=== PATIENT | male | born 1940 | race Two or more races ===

== ENCOUNTER 2018-12-07 13:16 | Observation (INO) | payer MEDICARE ==
--- NOTE | 2018-12-07 13:32 | EDM.PDOC ---
ED HPI GENERAL MEDICAL PROBLEM - General Chief Complaint: General Stated Complaint: FELL OFF BED Time Seen by Provider: 12/07/18 13:18 Source of Information: Reports: Patient History Limitations: Reports: No Limitations - History of Present Illness INITIAL COMMENTS - FREE TEXT/NARRATIVE: HISTORY AND PHYSICAL: History of present illness: Patient is a 78-year-old male who presents to the emergency room after a fall approximately one week ago. Patient reports that he was trying to get his pants on when his leg got caught, he recognized he was about to fall and had tried to lean towards the bed to catch his fall. He ended up landing on his left side onto the carpeted floor. Since that time he has had some left shoulder pain, left knee pain and an abrasion to his left great toe. Patient is originally from [place] and had been living with his daughter. There was some caregiver burnout and he recently came to [place] to live with his son over the past several days. He had not been evaluated for the fall initially while in [place]. He is here now for imaging.Patient denies any fever, chills, headache, change in vision, syncope or near syncope. Denies any chest pain, back pain, shortness of breath or cough. Denies any abdominal pain, nausea, vomiting, diarrhea, constipation or dysuria. Has not noted any blood in urine or stool. Patient poor eating and drinking habits (family reports this is normal for him) PMH of hypertension, atrial fibrillation, pacemaker, kidney disease Patient is Marshallese speaking, CHRISTINE was offered, declines and wants family at bedside to translate. Review of systems: As per history of present illness and below otherwise all systems reviewed and negative. Past medical history: As per history of present illness and as reviewed below otherwise noncontributory. Surgical history: As per history of present illness and as reviewed below otherwise noncontributory. Social history: See social history for further information Family history: As per history of present illness and as reviewed below otherwise noncontributory. Physical exam: General: Chronicially ill appearing but well-developed 78-year-old male. Alert and oriented. Nontoxic appearing and in no acute distress. HEENT: Nontender to palpation, normocephalic, pupils equal and reactive bilaterally, negative for conjunctival pallor or scleral icterus, mucous membranes dry, TMs normal bilaterally, throat clear, neck supple, nontender, trachea midline. No drooling or trismus noted. No meningeal signs. No hot potato voice noted. Lungs: Clear to auscultation fine crackles to the left lower base posteriorly, breath sounds equal bilaterally, chest nontender. Heart: S1S2, regular rate and rhythm without overt murmur Abdomen: Soft, nondistended, nontender. Negative for masses or hepatosplenomegaly. Negative for costovertebral tenderness. Pelvis: Stable nontender. Genitourinary: Deferred. Rectal: Deferred. Skin: Bruising noted to the left great toe. Otherwise skin is intact, warm, dry. No lesions or rashes noted. C-spine/Back: No pinpoint vertebral tenderness upon palpation. No crepitus, step -offs or obvious deformities. Denies any urinary or fecal incontinence. Denies any numbness, tingling or saddle paresthesias. Family reports he is ambulatory with assistance. Extremities: Pain with ROM of the left shoulder, left knee and left great toe. See skin for details. He is ambulatory and moves all extremities per self without deficits, strong pedal pulses bilaterally. Strong radial pulses bilaterally. Capillary refill less than 3 seconds.. Neurovascular unremarkable. Neuro: Awake, alert, oriented. Cranial nerves II through XII unremarkable. Cerebellum unremarkable. Motor and sensory unremarkable throughout. Exam nonfocal. Notes: EKG shows A.fib with normal rate, has a past medical history of atrial fibrillation with pacemaker. No previous records for comparison. Head CT shows no acute intracranial findings. Moderate small vessel ischemic changes. X-ray of the pelvis and hip shows no definite acute osseous abnormality. Left shoulder is high riding suggesting an underlying rotator cuff arthropathy. Otherwise severe joint space narrowing within the glenohumeral joint and mildacromioclavicular osteoarthritic changes. No acute osseous abnormality or fracture noted. Left knee shows moderate to large joint effusion. Mild inferior tilting of the medial tibial plateau without a definite fracture. Cardiomegaly without acute cardio pulmonary process. He does have some fine crackles to the left lower lobe due to the leukocytosis and treat this as a left lobe regular pneumonia. Dr Andrade was consulted on this patient. Will keep for IV fluids and antibiotics. Patient and family member are aware and agreeable to plan of care. Diagnostics: CT head/c-spine, Xray chest, xray left shoulder, xray left knee, xray left foot , CBC, CMP, INR, UA, Blood Culture x 2, Lactic Therapeutics: IV fluids, Rocephin Impression: Fall Renal Insufficiency Left lower lobe pneumonia Left knee effusion Cardiomegaly Abrasion, left great toe Plan: Observation admission to med/surg on Telemetry Definitive disposition and diagnosis as appropriate pending reevaluation and review of above. Duration: Week(s): left shoulder Pain Score (Numeric/FACES): 10 left knee Pain Score (Numeric/FACES): 10 lower back Pain Score (Numeric/FACES): 10 left large toe Pain Score (Numeric/FACES): 10 - Related Data Allergies Allergy/AdvReac Type Severity Reaction Status Date / Time No Known Allergies Allergy Verified 12/07/18 13:31 Home Meds: Home Meds Allopurinol [Zyloprim] 100 mg PO DAILY 12/07/18 [History] Amiodarone HCl 100 mg PO DAILY 12/07/18 [History] Apixaban [Eliquis] 5 mg PO DAILY 12/07/18 [History] Calcitriol 0.25 mcg PO DAILY 12/07/18 [History] Calcium Carbonate/Vitamin D3 [Calcium 1,000 + D3 Caplet] 1 tab PO BID 12/07/18 [ History] Carvedilol 12.5 mg PO BID 12/07/18 [History] Diltiazem HCl [Diltiazem 24Hr ER] 240 mg PO DAILY 12/07/18 [History] Doxycycline [Vibramycin] 100 mg PO DAILY 12/07/18 [History] Isosorbide Mononitrate [Isosorbide Mononitrate ER] 30 mg PO DAILY 12/07/18 [ History] Levothyroxine 75 mcg PO DAILY 12/07/18 [History] Omeprazole 40 mg PO DAILY 12/07/18 [History] Spironolactone [Aldactone] 25 mg PO DAILY 12/07/18 [History] Tamsulosin HCl 0.4 mg PO DAILY 12/07/18 [History] Torsemide 20 mg PO DAILY 12/07/18 [History] atorvaSTATin [Lipitor] 20 mg PO DAILY 12/07/18 [History] hydrALAZINE [Apresoline] 25 mg PO BID 12/07/18 [History] ED ROS GENERAL - Review of Systems Review Of Systems: ROS reveals no pertinent complaints other than HPI. ED EXAM, GENERAL - Physical Exam Exam: See Below (See dictation) Course - Vital Signs Last Recorded V/S: Last Vital Signs Temp 97.4 F 12/07/18 13:32 Pulse 70 12/07/18 15:50 Resp 11 L 12/07/18 15:50 BP 136/66 12/07/18 15:50 Pulse Ox 95 12/07/18 15:50 - Orders/Labs/Meds Orders: Active Orders 24 hr Category Date Time Status Admission Status [Patient Status] [ADT] Stat ADT 12/07/18 15:43 Active EKG Documentation Completion [RC] STAT Care 12/07/18 13:39 Active CULTURE BLOOD [BC] Stat Lab 12/07/18 15:52 Received CULTURE BLOOD [BC] Stat Lab 12/07/18 16:03 Received CULTURE URINE [RM] Stat Lab 12/07/18 14:27 Received Blood Culture x2 Reflex Set [OM.PC] Stat Oth 12/07/18 15:37 Ordered Labs: Laboratory Tests 12/07/18 12/07/18 12/07/18 Range/Units 14:03 14:03 14:03 WBC 21.14 H (4.0-11.0) K/uL RBC 5.36 (4.50-5.90) M/uL Hgb 14.0 (13.0-17.0) g/dL Hct 41.2 (38.0-50.0) % MCV 76.9 L (80.0-98.0) fL MCH 26.1 L (27.0-32.0) pg MCHC 34.0 (31.0-37.0) g/dL RDW Std Deviation 40.0 (28.0-62.0) fl RDW Coeff of Garrison 15 (11.0-15.0) % Plt Count 176 (150-400) K/uL MPV 10.00 (7.40-12.00) fL Add Manual Diff YES Neutrophils % (Manual) 86 H (48.0-80.0) % Band Neutrophils % 5 % Lymphocytes % (Manual) 7 L (16.0-40.0) % Monocytes % (Manual) 2 (0.0-15.0) % Nucleated RBC % 0.0 /100WBC Absolute Seg Neuts 18.2 H (1.4-5.7) Band Neutrophils # 1.1 Lymphocytes # (Manual) 1.5 (0.6-2.4) Monocytes # (Manual) 0.4 (0.0-0.8) Nucleated RBCs # 0 K/uL INR 1.16 Lactate (0.20-2.00) mmol/L Sodium 133 L (136-148) mmol/L Potassium 4.9 (3.5-5.1) mmol/L Chloride 98 (98-107) mmol/L Carbon Dioxide 19.0 L (21.0-32.0) mmol/L BUN 141 H (7.0-18.0) mg/dL Creatinine 3.6 H (0.8-1.3) mg/dL Est Cr Clr Drug Dosing TNP Estimated GFR (MDRD) 16.6 ml/min Glucose 208 H (74-106) mg/dL Calcium 9.9 (8.5-10.1) mg/dL Total Bilirubin 0.8 (0.2-1.0) mg/dL AST 21 (15-37) IU/L ALT 24 (14-63) IU/L Alkaline Phosphatase 74 (46-116) U/L Total Protein 8.2 (6.4-8.2) g/dL Albumin 3.3 L (3.4-5.0) g/dL Globulin 4.9 H (2.6-4.0) g/dL Albumin/Globulin Ratio 0.7 L (0.9-1.6) Urine Color Urine Appearance Urine pH (5.0-8.0) Ur Specific [place] (1.001-1.035) Urine Protein (NEGATIVE) mg/dL Urine Glucose (UA) (NEGATIVE) mg/dL Urine Ketones (NEGATIVE) mg/dL Urine Occult Blood (NEGATIVE) Urine Nitrite (NEGATIVE) Urine Bilirubin (NEGATIVE) Urine Urobilinogen (<2.0) EU/dL Ur Leukocyte Esterase (NEGATIVE) Urine RBC (0-2/HPF) Urine WBC (0-5/HPF) Ur Epithelial Cells (NONE-FEW) Urine Bacteria (NEGATIVE) 12/07/18 12/07/18 Range/Units 14:27 15:52 WBC (4.0-11.0) K/uL RBC (4.50-5.90) M/uL Hgb (13.0-17.0) g/dL Hct (38.0-50.0) % MCV (80.0-98.0) fL MCH (27.0-32.0) pg MCHC (31.0-37.0) g/dL RDW Std Deviation (28.0-62.0) fl RDW Coeff of Garrison (11.0-15.0) % Plt Count (150-400) K/uL MPV (7.40-12.00) fL Add Manual Diff Neutrophils % (Manual) (48.0-80.0) % Band Neutrophils % % Lymphocytes % (Manual) (16.0-40.0) % Monocytes % (Manual) (0.0-15.0) % Nucleated RBC % /100WBC Absolute Seg Neuts (1.4-5.7) Band Neutrophils # Lymphocytes # (Manual) (0.6-2.4) Monocytes # (Manual) (0.0-0.8) Nucleated RBCs # K/uL INR Lactate 1.4 (0.20-2.00) mmol/L Sodium (136-148) mmol/L Potassium (3.5-5.1) mmol/L Chloride (98-107) mmol/L Carbon Dioxide (21.0-32.0) mmol/L BUN (7.0-18.0) mg/dL Creatinine (0.8-1.3) mg/dL Est Cr Clr Drug Dosing Estimated GFR (MDRD) ml/min Glucose (74-106) mg/dL Calcium (8.5-10.1) mg/dL Total Bilirubin (0.2-1.0) mg/dL AST (15-37) IU/L ALT (14-63) IU/L Alkaline Phosphatase (46-116) U/L Total Protein (6.4-8.2) g/dL Albumin (3.4-5.0) g/dL Globulin (2.6-4.0) g/dL Albumin/Globulin Ratio (0.9-1.6) Urine Color YELLOW Urine Appearance CLEAR Urine pH 5.5 (5.0-8.0) Ur Specific [place] 1.010 (1.001-1.035) Urine Protein 30 H (NEGATIVE) mg/dL Urine Glucose (UA) NEGATIVE (NEGATIVE) mg/dL Urine Ketones NEGATIVE (NEGATIVE) mg/dL Urine Occult Blood TRACE-INTACT H (NEGATIVE) Urine Nitrite NEGATIVE (NEGATIVE) Urine Bilirubin NEGATIVE (NEGATIVE) Urine Urobilinogen 0.2 (<2.0) EU/dL Ur Leukocyte Esterase TRACE H (NEGATIVE) Urine RBC 0-2 (0-2/HPF) Urine WBC 0-2 (0-5/HPF) Ur Epithelial Cells OCCASIONAL (NONE-FEW) Urine Bacteria RARE (NEGATIVE) Meds: Medications Discontinued Medications Generic Name Dose Route Start Last Admin Trade Name Freq PRN Reason Stop Dose Admin Bacitracin 1 dose 12/07/18 13:40 12/07/18 13:51 Bacitracin Oint 1 Gm TOP 12/07/18 13:41 1 dose ONETIME ONE Administration Sodium Chloride 1,000 mls @ 999 mls/hr 12/07/18 15:21 12/07/18 15:49 Normal Saline IV 12/07/18 16:21 999 mls/hr STAT ONE Administration Ceftriaxone Sodium/Dextrose 1 50 mls @ 100 mls/hr 12/07/18 15:42 12/07/18 15: 53 gm/ Premix IV 12/07/18 16:11 100 mls/hr ONETIME ONE Administration Departure - Departure Time of Disposition: 15:52 Disposition: Refer to Observation Clinical Impression: Dehydration, Cardiomegaly, Renal insufficiency, Knee effusion, left, Abrasion Fall Qualifiers: Encounter type: initial encounter Qualified Code(s): W19.XXXA - Unspecified fall, initial encounter Pneumonia Qualifiers: Pneumonia type: due to unspecified organism Laterality: left Lung location: unspecified part of lung Qualified Code(s): J18.9 - Pneumonia, unspecified organism - Discharge Information - My Orders Last 24 Hours: My Active Orders 12/07/18 13:39 EKG Documentation Completion [RC] STAT 12/07/18 14:27 CULTURE URINE [RM] Stat 12/07/18 15:37 Blood Culture x2 Reflex Set [OM.PC] Stat 12/07/18 15:43 Admission Status [Patient Status] [ADT] Stat 12/07/18 15:52 CULTURE BLOOD [BC] Stat 12/07/18 16:03 CULTURE BLOOD [BC] Stat - Assessment/Plan Last 24 Hours: My Active Orders 12/07/18 13:39 EKG Documentation Completion [RC] STAT 12/07/18 14:27 CULTURE URINE [RM] Stat 12/07/18 15:37 Blood Culture x2 Reflex Set [OM.PC] Stat 12/07/18 15:43 Admission Status [Patient Status] [ADT] Stat 12/07/18 15:52 CULTURE BLOOD [BC] Stat 12/07/18 16:03 CULTURE BLOOD [BC] Stat
[2018-12-07] MEDS ORDERED: Bacitracin Oint 1 GM U/D Packet TOP ONE (13:40)
[2018-12-07 14:50] LABS: CHLORIDE,CL 98 mmol/L (98-107); SODIUM,NA 133 mmol/L (136-148)
--- NOTE | 2018-12-07 15:15 | CT ---
EXAMINATION: Non contrast CT head. Coronal and sagittal reformats. HISTORY: Pain FINDINGS: No evidence of intra or extra axial hemorrhage, mass, midline shift, hydrocephalus or edema. Moderate periventricular and subcortical white matter hypodensities are noted. No hypoattenuation changes in the major vascular territories to suggest acute infarct. No abnormal intracranial calcifications are detected. No evidence of substantial vascular calcifications. Paranasal sinuses and mastoid air cells are well aerated without substantial findings. Pituitary fossa appears unremarkable. Orbits and globes are symmetric. Calvarium is intact. No evidence of skull fracture. IMPRESSION: 1. No acute intracranial findings. 2. Moderate small vessel ischemic changes.
[2018-12-07] MEDS ORDERED: Sodium Chloride 0.9% 1,000 ML IV ONE (15:21)
--- NOTE | 2018-12-07 15:37 | CT ---
EXAMINATION: CT cervical spine HISTORY: Pain COMPARISON: None TECHNIQUE: Axial CT imaging obtained through the cervical spine without contrast. Coronal and sagittal reconstructions obtained. FINDINGS: Mild reversal of the normal cervical lordosis. There is no fracture or acute osseous abnormality. Bone mineralization is normal. Disc space narrowing and marginal osteophytes noted at multiple levels. Mild carotid artery calcifications. Paravertebral soft tissues otherwise appear normal. Lung apices are clear. IMPRESSION: 1. Degenerative changes noted within the cervical spine without acute findings.
--- NOTE | 2018-12-07 15:39 | CR ---
EXAMINATION: Portable chest radiograph. HISTORY: Shortness of breath. FINDINGS: The trachea is midline. The heart is enlarged. There is a left-sided AICD noted. Lungs are clear without focal consolidation. No pleural effusion or pneumothorax. Degenerative changes noted within the shoulders. IMPRESSION: Cardiomegaly without an acute cardiopulmonary process.
--- NOTE | 2018-12-07 15:41 | CR ---
EXAMINATION: Pelvis and left hip HISTORY: Fall COMPARISON: None TECHNIQUE: AP pelvis and 2 views of the left hip FINDINGS: There is no definite fracture or acute osseous abnormality noted. Bone mineralization and joint spaces are preserved. Iliopectineal lines are intact. SI joints are symmetric. Vascular calcifications are noted. IMPRESSION: 1. No definite acute osseous abnormality demonstrated.
[2018-12-07] MEDS ORDERED: cefTRIAXone 1 GM in Premix Bag 1 BAG IV ONE (15:42)
--- NOTE | 2018-12-07 15:43 | CR ---
EXAMINATION: Left shoulder HISTORY: Pain COMPARISON: None TECHNIQUE: 3 views FINDINGS/IMPRESSION: The left shoulder is high riding suggesting underlying rotator cuff arthropathy. Otherwise severe joint space narrowing within the glenohumeral joint and mild acromioclavicular osteoarthritic changes. Bone mineralization appears mildly osteopenic without an acute osseous abnormality or fracture.
--- NOTE | 2018-12-07 15:44 | CR ---
EXAMINATION: Left knee HISTORY: Fall COMPARISON: None TECHNIQUE: 3 views FINDINGS: There is a moderate to large joint effusion. There is mild inferior tilting of the medial tibial plateau without a definite fracture identified. There is moderate chondrocalcinosis and early osteophyte formation. Mild joint space narrowing within the patellofemoral compartment. Mild generalized osteopenia. Vascular calcifications are noted. IMPRESSION: 1. Moderate to large joint effusion. 2. Mild inferior tilting of the medial tibial plateau without a definite fracture.
--- NOTE | 2018-12-07 15:46 | CR ---
EXAMINATION: Left foot HISTORY: Fall COMPARISON: None TECHNIQUE: 2 views FINDINGS: There is no acute osseous abnormality, dislocation, or fracture. Bone mineralization is osteopenic. Moderate vascular calcifications. Degenerative changes noted at the first MTP joint and within the interphalangeal joints. IMPRESSION: 1. No definite acute osseous abnormality identified. 2. Generalized osteopenia.
--- NOTE | 2018-12-07 17:13 | PCM.HP ---
H&P History of Present Illness - General Date of Service: 12/08/18 Admit Problem/Dx: Admission Diagnosis/Problem Admission Diagnosis/Problem Pneumonia Source of Information: Patient, Family History Limitations: Reports: No Limitations - History of Present Illness Initial Comments - Free Text/Narative: The patient is a 78-year-old gentleman who is brought by his family from [place] and had presented to the emergency department with a complaint of falling off the bed. The patient has been in the area for approximately 1 month. He is Portuguese-speaking only. The patient reported that he had a fall approximately one week ago. Palate had been trying to get up and landed on his left side on the carpeted floor. The patient had been cared for family members while in [place] and his family locally have decided to give the other family members a temporary respite. The patient has a complicated medical history including hypertension, atrial fibrillation with pacemaker placement as well as chronic kidney disease. The family reported that the patient also has a history of poor fluid and food intake. The patient has denied any new pain. He is complaining of pain in his left great toe from his fall last week. He also has denied any shortness of breath. Should be noted that the patient previously had been treated in [place] for pneumonia. Onset of Symptoms: Reports: Gradual Duration of Symptoms: Reports: Week(s): Location: Reports: Upper Extremity, Left, Lower Extremity, Left Quality: Reports: Stabbing, Throbbing Severity: Moderate Improves with: Reports: Medication, Rest Worsens with: Reports: Movement Context: Reports: Trauma Associated Symptoms: Reports: No Other Symptoms left shoulder Pain Score (Numeric/FACES): 10 left knee Pain Score (Numeric/FACES): 10 lower back Pain Score (Numeric/FACES): 10 left large toe Pain Score (Numeric/FACES): 5 - Related Data Allergies/Adverse Reactions: Allergies Allergy/AdvReac Type Severity Reaction Status Date / Time No Known Allergies Allergy Verified 12/07/18 13:31 Home Medications: Home Meds Allopurinol [Zyloprim] 100 mg PO DAILY 12/07/18 [History] Amiodarone HCl 100 mg PO DAILY 12/07/18 [History] Apixaban [Eliquis] 5 mg PO DAILY 12/07/18 [History] Calcitriol 0.25 mcg PO DAILY 12/07/18 [History] Calcium Carbonate/Vitamin D3 [Calcium 1,000 + D3 Caplet] 1 tab PO BID 12/07/18 [ History] Carvedilol 12.5 mg PO BID 12/07/18 [History] Diltiazem HCl [Diltiazem 24Hr ER] 240 mg PO DAILY 12/07/18 [History] Doxycycline [Vibramycin] 100 mg PO DAILY 12/07/18 [History] Isosorbide Mononitrate [Isosorbide Mononitrate ER] 30 mg PO DAILY 12/07/18 [ History] Levothyroxine 75 mcg PO DAILY 12/07/18 [History] Omeprazole 40 mg PO DAILY 12/07/18 [History] Spironolactone [Aldactone] 25 mg PO DAILY 12/07/18 [History] Tamsulosin HCl 0.4 mg PO DAILY 12/07/18 [History] Torsemide 20 mg PO DAILY 12/07/18 [History] atorvaSTATin [Lipitor] 20 mg PO DAILY 12/07/18 [History] hydrALAZINE [Apresoline] 25 mg PO BID 12/07/18 [History] Past Medical History HEENT History: Reports: Hard of Hearing Cardiovascular History: Reports: Afib, Hypertension, [place], Pacemaker Respiratory History: Reports: Pneumonia, Recurrent Gastrointestinal History: Reports: GERD Genitourinary History: Reports: None Musculoskeletal History: Reports: Arthritis Neurological History: Reports: None Psychiatric History: Reports: None Endocrine/Metabolic History: Reports: None Hematologic History: Reports: None Immunologic History: Reports: None Oncologic (Cancer) History: Reports: None Dermatologic History: Reports: None Social & Family History - Tobacco Use Smoking Status *Q: Never Smoker - Alcohol Use Alcohol Use History: No - Recreational Drug Use Recreational Drug Use: No - Living Situation & Occupation Living situation: Reports: with Family Occupation: Retired H&P Review of Systems - Review of Systems: Review Of Systems: See Below General: Reports: Weakness, Fatigue HEENT: Reports: No Symptoms Pulmonary: Reports: Shortness of Breath Cardiovascular: Reports: No Symptoms Gastrointestinal: Reports: No Symptoms Genitourinary: Reports: No Symptoms Musculoskeletal: Reports: Neck Pain, Arm Pain, Leg Pain, Foot Pain Skin: Reports: No Symptoms Psychiatric: Reports: No Symptoms Neurological: Reports: No Symptoms Hematologic/Lymphatic: Reports: No Symptoms Immunologic: Reports: No Symptoms Exam - Exam Exam: See Below - Vital Signs Vital Signs: Last Vital Signs Temp 36.3 C 12/07/18 13:32 Pulse 70 12/07/18 15:50 Resp 11 L 12/07/18 15:50 BP 136/66 12/07/18 15:50 Pulse Ox 95 12/07/18 15:50 Weight: 68.039 kg - Exam Quality Assessment: No: Supplemental Oxygen General: Alert, Oriented, Cooperative HEENT: Conjunctiva Clear, EACs Clear, EOMI, Nares Patent, Pupils Equal, PERRLA. No: Mucosa Moist & [place] (Dry, Poor [place]) Neck: Supple, Trachea Midline Lungs: Clear to Auscultation, Normal Respiratory Effort Cardiovascular: Regular Rate (Paced), Regular Rhythm GI/Abdominal Exam: Normal Bowel Sounds, Soft, Non-Tender, No Distention. No: Guarding, Rigid, Rebound Back Exam: Normal Inspection Extremities: No: Normal Inspection (Hard, nodular swelling multiple large and small joints), Normal Range of Motion Skin: Warm, Dry, Wound (Left great toe) Neurological: Cranial Nerves Intact Neuro Extensive - Mental Status: Alert, Oriented x3 Psychiatric: Alert, Normal Affect, Normal Mood - Patient Data Lab Results Last 24 hrs: Laboratory Results - last 24 hr 12/07/18 12/07/18 12/07/18 Range/Units 14:03 14:03 14:03 WBC 21.14 H (4.0-11.0) K/uL RBC 5.36 (4.50-5.90) M/uL Hgb 14.0 (13.0-17.0) g/dL Hct 41.2 (38.0-50.0) % MCV 76.9 L (80.0-98.0) fL MCH 26.1 L (27.0-32.0) pg MCHC 34.0 (31.0-37.0) g/dL RDW Std Deviation 40.0 (28.0-62.0) fl RDW Coeff of [place] 15 (11.0-15.0) % Plt Count 176 (150-400) K/uL MPV 10.00 (7.40-12.00) fL Add Manual Diff YES Neutrophils % (Manual) 86 H (48.0-80.0) % Band Neutrophils % 5 % Lymphocytes % (Manual) 7 L (16.0-40.0) % Monocytes % (Manual) 2 (0.0-15.0) % Nucleated RBC % 0.0 /100WBC Absolute Seg Neuts 18.2 H (1.4-5.7) Band Neutrophils # 1.1 Lymphocytes # (Manual) 1.5 (0.6-2.4) Monocytes # (Manual) 0.4 (0.0-0.8) Nucleated RBCs # 0 K/uL INR 1.16 Lactate (0.20-2.00) mmol/L Sodium 133 L (136-148) mmol/L Potassium 4.9 (3.5-5.1) mmol/L Chloride 98 (98-107) mmol/L Carbon Dioxide 19.0 L (21.0-32.0) mmol/L BUN 141 H (7.0-18.0) mg/dL Creatinine 3.6 H (0.8-1.3) mg/dL Est Cr Clr Drug Dosing TNP Estimated GFR (MDRD) 16.6 ml/min Glucose 208 H (74-106) mg/dL Calcium 9.9 (8.5-10.1) mg/dL Total Bilirubin 0.8 (0.2-1.0) mg/dL AST 21 (15-37) IU/L ALT 24 (14-63) IU/L Alkaline Phosphatase 74 (46-116) U/L Total Protein 8.2 (6.4-8.2) g/dL Albumin 3.3 L (3.4-5.0) g/dL Globulin 4.9 H (2.6-4.0) g/dL Albumin/Globulin Ratio 0.7 L (0.9-1.6) Urine Color Urine Appearance Urine pH (5.0-8.0) Ur Specific [place] (1.001-1.035) Urine Protein (NEGATIVE) mg/dL Urine Glucose (UA) (NEGATIVE) mg/dL Urine Ketones (NEGATIVE) mg/dL Urine Occult Blood (NEGATIVE) Urine Nitrite (NEGATIVE) Urine Bilirubin (NEGATIVE) Urine Urobilinogen (<2.0) EU/dL Ur Leukocyte Esterase (NEGATIVE) Urine RBC (0-2/HPF) Urine WBC (0-5/HPF) Ur Epithelial Cells (NONE-FEW) Urine Bacteria (NEGATIVE) 12/07/18 12/07/18 Range/Units 14:27 15:52 WBC (4.0-11.0) K/uL RBC (4.50-5.90) M/uL Hgb (13.0-17.0) g/dL Hct (38.0-50.0) % MCV (80.0-98.0) fL MCH (27.0-32.0) pg MCHC (31.0-37.0) g/dL RDW Std Deviation (28.0-62.0) fl RDW Coeff of [place] (11.0-15.0) % Plt Count (150-400) K/uL MPV (7.40-12.00) fL Add Manual Diff Neutrophils % (Manual) (48.0-80.0) % Band Neutrophils % % Lymphocytes % (Manual) (16.0-40.0) % Monocytes % (Manual) (0.0-15.0) % Nucleated RBC % /100WBC Absolute Seg Neuts (1.4-5.7) Band Neutrophils # Lymphocytes # (Manual) (0.6-2.4) Monocytes # (Manual) (0.0-0.8) Nucleated RBCs # K/uL INR Lactate 1.4 (0.20-2.00) mmol/L Sodium (136-148) mmol/L Potassium (3.5-5.1) mmol/L Chloride (98-107) mmol/L Carbon Dioxide (21.0-32.0) mmol/L BUN (7.0-18.0) mg/dL Creatinine (0.8-1.3) mg/dL Est Cr Clr Drug Dosing Estimated GFR (MDRD) ml/min Glucose (74-106) mg/dL Calcium (8.5-10.1) mg/dL Total Bilirubin (0.2-1.0) mg/dL AST (15-37) IU/L ALT (14-63) IU/L Alkaline Phosphatase (46-116) U/L Total Protein (6.4-8.2) g/dL Albumin (3.4-5.0) g/dL Globulin (2.6-4.0) g/dL Albumin/Globulin Ratio (0.9-1.6) Urine Color YELLOW Urine Appearance CLEAR Urine pH 5.5 (5.0-8.0) Ur Specific [place] 1.010 (1.001-1.035) Urine Protein 30 H (NEGATIVE) mg/dL Urine Glucose (UA) NEGATIVE (NEGATIVE) mg/dL Urine Ketones NEGATIVE (NEGATIVE) mg/dL Urine Occult Blood TRACE-INTACT H (NEGATIVE) Urine Nitrite NEGATIVE (NEGATIVE) Urine Bilirubin NEGATIVE (NEGATIVE) Urine Urobilinogen 0.2 (<2.0) EU/dL Ur Leukocyte Esterase TRACE H (NEGATIVE) Urine RBC 0-2 (0-2/HPF) Urine WBC 0-2 (0-5/HPF) Ur Epithelial Cells OCCASIONAL (NONE-FEW) Urine Bacteria RARE (NEGATIVE) Result Diagrams: 12/08/18 05:50 12/08/18 05:50 - Problem List (1) Dehydration SNOMED Code(s): 84705962 ICD Code: E86.0 - DEHYDRATION Status: Acute Current Visit: Yes (2) Anticoagulant long-term use SNOMED Code(s): 600812057 ICD Code: Z79.01 - 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 OF ANTICOAGULANTS Status: Acute Current Visit: Yes (3) Cardiomegaly SNOMED Code(s): 0815704 ICD Code: I51.7 - CARDIOMEGALY Status: Acute Current Visit: Yes (4) Congestive heart failure (CHF) SNOMED Code(s): 15366894 ICD Code: I50.9 - HEART FAILURE, UNSPECIFIED Status: Acute Current Visit : Yes (5) Osteoarthritis involving multiple joints on both sides of body SNOMED Code(s): 882321371 ICD Code: M15.9 - POLYOSTEOARTHRITIS, UNSPECIFIED Status: Acute Current Visit: Yes (6) Pacemaker SNOMED Code(s): 953059913 ICD Code: Z95.0 - PRESENCE OF CARDIAC PACEMAKER Status: Acute Current Visit: Yes (7) Renal insufficiency SNOMED Code(s): 772282382, 019628011 ICD Code: N28.9 - DISORDER OF KIDNEY AND URETER, UNSPECIFIED Status: Acute Current Visit: Yes (8) Fall SNOMED Code(s): 2100866, 253466838 ICD Code: W19.XXXA - UNSPECIFIED FALL, INITIAL ENCOUNTER Status: Acute Current Visit: Yes Qualifiers: Encounter type: initial encounter Qualified Code(s): W19.XXXA - Unspecified fall, initial encounter Problem List Initiated/Reviewed/Updated: Yes Orders Last 24hrs: Active Orders 24 hr Category Date Time Status Admission Status [Patient Status] [ADT] Stat ADT 12/07/18 15:43 Active EKG Documentation Completion [RC] STAT Care 12/07/18 13:39 Active Telemetry Monitoring [Cardiac Monitoring] [RC] Care 12/07/18 17:10 Active ASDIRECTED CULTURE BLOOD [BC] Stat Lab 12/07/18 15:52 Received CULTURE BLOOD [BC] Stat Lab 12/07/18 16:03 Received CULTURE URINE [RM] Stat Lab 12/07/18 14:27 Received Blood Culture x2 Reflex Set [OM.PC] Stat Oth 12/07/18 15:37 Ordered Assessment/Plan Comment:: The patient is a 78-year-old gentleman who has multiple chronic medical issues and his primary reason for Hospital admission is for dehydration. Patient has chronic kidney disease and he'll be gently fluid resuscitated. His I&O's will be monitored. It should be noted that the patient initially had been thought to have pneumonia however, radiographic evidence does not support this diagnosis. The patient is also currently chronically anticoagulated due to his atrial fibrillation as well as pacemaker placement. The patient's home Eliquis will be continued. A primary concern is the patient's frequent falls and he has been imaged without signs or symptoms of fracture. 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 He is on allopurinol and this will be continued. Patient does have leukocytosis which is thought to be secondary to dehydration. The patient will be kept on telemetry due to his heart disease. The patient will have repeat laboratory studies ordered for the morning. The patient also has marked elevation of his BUN/creatinine and creatinine although his creatinine of 3.6 mg/dL is likely at his baseline. The patient has been encouraged to ambulate as he can. The patient should be appropriate for discharge in 1-2 days.
[2018-12-07] MEDS ORDERED: Docusate Sodium 100 MG Cap PO PRN (18:01)
[2018-12-07] MEDS ORDERED: Temazepam 15 MG Cap PO PRN (18:01)
[2018-12-07] MEDS ORDERED: Acetaminophen 325 MG Tab PO PRN (18:01)
[2018-12-07] MEDS: Sodium Chloride 0.9% 1,000 ML IV SCH (18:54)
[2018-12-07] MEDS: Carvedilol 12.5 MG Tab PO SCH (21:01)
[2018-12-07] MEDS: hydrALAZINE 25 MG Tab PO SCH (21:01)
[2018-12-08] MEDS: oxyCODONE 5 MG Tab PO PRN ×2 (01:49→16:13)
[2018-12-08] MEDS: Sodium Chloride 0.9% 1,000 ML IV SCH ×2 (04:58→12:57)
[2018-12-08] MEDS ORDERED: Sodium Chloride 0.9% 500 ML IV SCH (05:00)
[2018-12-08] MEDS: Levothyroxine 75 MCG Tab PO SCH (06:35)
[2018-12-08] MEDS: Omeprazole 20 MG Cap.CR PO SCH (06:35)
[2018-12-08] MEDS: cefTRIAXone 1 GM in Premix Bag 1 BAG IV SCH (09:02)
[2018-12-08] MEDS: atorvaSTATin 20 MG Tab PO SCH (09:02)
[2018-12-08] MEDS: Spironolactone 25 MG Tab PO SCH (09:02)
[2018-12-08] MEDS: Amiodarone 200 MG Tab PO SCH (09:02)
[2018-12-08] MEDS: Torsemide 20 MG Tab PO SCH (09:03)
[2018-12-08] MEDS: Calcitriol 0.25 MCG Cap PO SCH (09:03)
[2018-12-08] MEDS: Tamsulosin 0.4 MG Cap.ER PO SCH (09:03)
[2018-12-08] MEDS: Allopurinol 100 MG Tab PO SCH (09:03)
[2018-12-08] MEDS: Apixaban 5 MG Tab PO SCH (09:04)
[2018-12-08] MEDS: hydrALAZINE 25 MG Tab PO SCH ×2 (09:04→20:05)
[2018-12-08] MEDS: Isosorbide Mononitrate 30 MG Tab.ER PO SCH (09:05)
[2018-12-08] MEDS: Diltiazem 120 MG Cap.CD PO SCH (09:05)
[2018-12-08] MEDS: Carvedilol 12.5 MG Tab PO SCH ×2 (09:05→20:04)
[2018-12-08] MEDS: Doxycycline 100 MG Cap PO SCH (09:06)
--- NOTE | 2018-12-08 11:23 | PCM.PN ---
<Caesar Kyle - Last Filed: 12/08/18 11:18> - General Info Date of Service: 12/08/18 Subjective Update: Complains of generally not feeling well and significant L shoulder pain which is chronic, and L toe pain from his fall. - Review of Systems General: Reports: Other (see hpi) - Patient Data Vitals - Most Recent: Last Vital Signs Temp 36.6 C 12/08/18 07:51 Pulse 68 12/08/18 09:05 Resp 15 12/08/18 07:51 BP 107/54 L 12/08/18 09:05 Pulse Ox 94 L 12/08/18 07:51 Weight - Most Recent: 68.039 kg I&O - Last 24 Hours: Intake & Output 12/07/18 12/08/18 12/08/18 22:59 06:59 14:59 Intake Total 450 Output Total 900 Balance -450 Lab Results Last 24 Hours: Laboratory Results - last 24 hr 12/07/18 12/07/18 12/07/18 Range/Units 14:03 14:03 14:03 WBC 21.14 H (4.0-11.0) K/uL RBC 5.36 (4.50-5.90) M/uL Hgb 14.0 (13.0-17.0) g/dL Hct 41.2 (38.0-50.0) % MCV 76.9 L (80.0-98.0) fL MCH 26.1 L (27.0-32.0) pg MCHC 34.0 (31.0-37.0) g/dL RDW Std Deviation 40.0 (28.0-62.0) fl RDW Coeff of [place] 15 (11.0-15.0) % Plt Count 176 (150-400) K/uL MPV 10.00 (7.40-12.00) fL Add Manual Diff YES Neutrophils % (Manual) 86 H (48.0-80.0) % Band Neutrophils % 5 % Lymphocytes % (Manual) 7 L (16.0-40.0) % Monocytes % (Manual) 2 (0.0-15.0) % Nucleated RBC % 0.0 /100WBC Absolute Seg Neuts 18.2 H (1.4-5.7) Band Neutrophils # 1.1 Lymphocytes # (Manual) 1.5 (0.6-2.4) Monocytes # (Manual) 0.4 (0.0-0.8) Nucleated RBCs # 0 K/uL INR 1.16 Lactate (0.20-2.00) mmol/L Sodium 133 L (136-148) mmol/L Potassium 4.9 (3.5-5.1) mmol/L Chloride 98 (98-107) mmol/L Carbon Dioxide 19.0 L (21.0-32.0) mmol/L BUN 141 H (7.0-18.0) mg/dL Creatinine 3.6 H (0.8-1.3) mg/dL Est Cr Clr Drug Dosing TNP Estimated GFR (MDRD) 16.6 ml/min Glucose 208 H (74-106) mg/dL Calcium 9.9 (8.5-10.1) mg/dL Total Bilirubin 0.8 (0.2-1.0) mg/dL AST 21 (15-37) IU/L ALT 24 (14-63) IU/L Alkaline Phosphatase 74 (46-116) U/L Total Protein 8.2 (6.4-8.2) g/dL Albumin 3.3 L (3.4-5.0) g/dL Globulin 4.9 H (2.6-4.0) g/dL Albumin/Globulin Ratio 0.7 L (0.9-1.6) Urine Color Urine Appearance Urine pH (5.0-8.0) Ur Specific [place] (1.001-1.035) Urine Protein (NEGATIVE) mg/dL Urine Glucose (UA) (NEGATIVE) mg/dL Urine Ketones (NEGATIVE) mg/dL Urine Occult Blood (NEGATIVE) Urine Nitrite (NEGATIVE) Urine Bilirubin (NEGATIVE) Urine Urobilinogen (<2.0) EU/dL Ur Leukocyte Esterase (NEGATIVE) Urine RBC (0-2/HPF) Urine WBC (0-5/HPF) Ur Epithelial Cells (NONE-FEW) Urine Bacteria (NEGATIVE) 12/07/18 12/07/18 12/08/18 Range/Units 14:27 15:52 05:50 WBC 17.40 H (4.0-11.0) K/uL RBC 4.99 (4.50-5.90) M/uL Hgb 12.9 L (13.0-17.0) g/dL Hct 38.2 (38.0-50.0) % MCV 76.6 L (80.0-98.0) fL MCH 25.9 L (27.0-32.0) pg MCHC 33.8 (31.0-37.0) g/dL RDW Std Deviation 40.2 (28.0-62.0) fl RDW Coeff of [place] 15 (11.0-15.0) % Plt Count 184 (150-400) K/uL MPV 10.70 (7.40-12.00) fL Add Manual Diff YES Neutrophils % (Manual) 84 H (48.0-80.0) % Band Neutrophils % 1 % Lymphocytes % (Manual) 9 L (16.0-40.0) % Monocytes % (Manual) 6 (0.0-15.0) % Nucleated RBC % 0.0 /100WBC Absolute Seg Neuts 14.6 H (1.4-5.7) Band Neutrophils # 0.2 Lymphocytes # (Manual) 1.6 (0.6-2.4) Monocytes # (Manual) 1.0 H (0.0-0.8) Nucleated RBCs # 0 K/uL INR Lactate 1.4 (0.20-2.00) mmol/L Sodium (136-148) mmol/L Potassium (3.5-5.1) mmol/L Chloride (98-107) mmol/L Carbon Dioxide (21.0-32.0) mmol/L BUN (7.0-18.0) mg/dL Creatinine (0.8-1.3) mg/dL Est Cr Clr Drug Dosing Estimated GFR (MDRD) ml/min Glucose (74-106) mg/dL Calcium (8.5-10.1) mg/dL Total Bilirubin (0.2-1.0) mg/dL AST (15-37) IU/L ALT (14-63) IU/L Alkaline Phosphatase (46-116) U/L Total Protein (6.4-8.2) g/dL Albumin (3.4-5.0) g/dL Globulin (2.6-4.0) g/dL Albumin/Globulin Ratio (0.9-1.6) Urine Color YELLOW Urine Appearance CLEAR Urine pH 5.5 (5.0-8.0) Ur Specific [place] 1.010 (1.001-1.035) Urine Protein 30 H (NEGATIVE) mg/dL Urine Glucose (UA) NEGATIVE (NEGATIVE) mg/dL Urine Ketones NEGATIVE (NEGATIVE) mg/dL Urine Occult Blood TRACE-INTACT H (NEGATIVE) Urine Nitrite NEGATIVE (NEGATIVE) Urine Bilirubin NEGATIVE (NEGATIVE) Urine Urobilinogen 0.2 (<2.0) EU/dL Ur Leukocyte Esterase TRACE H (NEGATIVE) Urine RBC 0-2 (0-2/HPF) Urine WBC 0-2 (0-5/HPF) Ur Epithelial Cells OCCASIONAL (NONE-FEW) Urine Bacteria RARE (NEGATIVE) 12/08/18 Range/Units 05:50 WBC (4.0-11.0) K/uL RBC (4.50-5.90) M/uL Hgb (13.0-17.0) g/dL Hct (38.0-50.0) % MCV (80.0-98.0) fL MCH (27.0-32.0) pg MCHC (31.0-37.0) g/dL RDW Std Deviation (28.0-62.0) fl RDW Coeff of [place] (11.0-15.0) % Plt Count (150-400) K/uL MPV (7.40-12.00) fL Add Manual Diff Neutrophils % (Manual) (48.0-80.0) % Band Neutrophils % % Lymphocytes % (Manual) (16.0-40.0) % Monocytes % (Manual) (0.0-15.0) % Nucleated RBC % /100WBC Absolute Seg Neuts (1.4-5.7) Band Neutrophils # Lymphocytes # (Manual) (0.6-2.4) Monocytes # (Manual) (0.0-0.8) Nucleated RBCs # K/uL INR Lactate (0.20-2.00) mmol/L Sodium 136 (136-148) mmol/L Potassium 4.4 (3.5-5.1) mmol/L Chloride 104 (98-107) mmol/L Carbon Dioxide 17.7 L (21.0-32.0) mmol/L BUN 128 H (7.0-18.0) mg/dL Creatinine 3.1 H (0.8-1.3) mg/dL Est Cr Clr Drug Dosing 16.32 Estimated GFR (MDRD) 19.7 ml/min Glucose 123 H (74-106) mg/dL Calcium 8.9 (8.5-10.1) mg/dL Total Bilirubin 0.8 (0.2-1.0) mg/dL AST 31 (15-37) IU/L ALT 28 (14-63) IU/L Alkaline Phosphatase 65 (46-116) U/L Total Protein 6.8 (6.4-8.2) g/dL Albumin 2.5 L (3.4-5.0) g/dL Globulin 4.3 H (2.6-4.0) g/dL Albumin/Globulin Ratio 0.6 L (0.9-1.6) Urine Color Urine Appearance Urine pH (5.0-8.0) Ur Specific [place] (1.001-1.035) Urine Protein (NEGATIVE) mg/dL Urine Glucose (UA) (NEGATIVE) mg/dL Urine Ketones (NEGATIVE) mg/dL Urine Occult Blood (NEGATIVE) Urine Nitrite (NEGATIVE) Urine Bilirubin (NEGATIVE) Urine Urobilinogen (<2.0) EU/dL Ur Leukocyte Esterase (NEGATIVE) Urine RBC (0-2/HPF) Urine WBC (0-5/HPF) Ur Epithelial Cells (NONE-FEW) Urine Bacteria (NEGATIVE) Med Orders - Current: Current Medications Acetaminophen (Tylenol) 650 mg PO Q4H PRN PRN Reason: Pain (Mild 1-3)/fever Allopurinol (Zyloprim) 100 mg PO DAILY [facility] Last Admin: 12/08/18 09:03 Dose: 100 mg Amiodarone HCl (Cordarone) 100 mg PO DAILY [facility] Last Admin: 12/08/18 09:02 Dose: 100 mg Apixaban (Eliquis) 5 mg PO DAILY [facility] Last Admin: 12/08/18 09:04 Dose: 5 mg Atorvastatin Calcium (Lipitor) 20 mg PO DAILY [facility] Last Admin: 12/08/18 09:02 Dose: 20 mg Calcitriol (Rocaltrol) 0.25 mcg PO DAILY [facility] Last Admin: 12/08/18 09:03 Dose: 0.25 mcg Carvedilol (Coreg) 12.5 mg PO BID [facility] Last Admin: 12/08/18 09:05 Dose: Not Given Diltiazem HCl (Cardizem Cd) 240 mg PO DAILY [facility] Last Admin: 12/08/18 09:05 Dose: Not Given Docusate Sodium (Colace) 100 mg PO BID PRN PRN Reason: Constipation Doxycycline Hyclate (Vibramycin) 100 mg PO DAILY [facility] Last Admin: 12/08/18 09:06 Dose: Not Given Hydralazine HCl (Apresoline) 25 mg PO BID [facility] Last Admin: 12/08/18 09:04 Dose: Not Given Sodium Chloride (Normal Saline) 1,000 mls @ 75 mls/hr IV ASDIRECTED [facility] Last Admin: 12/08/18 04:58 Dose: 75 mls/hr Sodium Chloride (Normal Saline) 500 mls @ 999 mls/hr IV .BOLUS [facility] Last Admin: 12/08/18 05:07 Dose: 999 mls/hr Ceftriaxone Sodium/Dextrose 1 (gm/ Premix) 50 mls @ 100 mls/hr IV Q24H [facility] Last Admin: 12/08/18 09:02 Dose: 100 mls/hr Isosorbide Mononitrate (Imdur) 30 mg PO DAILY [facility] Last Admin: 12/08/18 09:05 Dose: Not Given Levothyroxine Sodium (Levothyroxine) 75 mcg PO ACBREAKFAST [facility] Last Admin: 12/08/18 06:35 Dose: 75 mcg Omeprazole (Omeprazole) 40 mg PO ACBREAKFAST [facility] Last Admin: 12/08/18 06:35 Dose: 40 mg Oxycodone HCl (Oxycodone) 5 mg PO Q4H PRN PRN Reason: Pain (moderate 4-6) Last Admin: 12/08/18 01:49 Dose: 5 mg Spironolactone (Aldactone) 25 mg PO DAILY [facility] Last Admin: 12/08/18 09:02 Dose: 25 mg Tamsulosin HCl (Flomax) 0.4 mg PO DAILY [facility] Last Admin: 12/08/18 09:03 Dose: 0.4 mg Temazepam (Restoril) 15 mg PO BEDTIME PRN PRN Reason: Sleep Torsemide (Demadex) 20 mg PO DAILY [facility] Last Admin: 12/08/18 09:03 Dose: 20 mg Discontinued Medications Bacitracin (Bacitracin Oint 1 Gm) 1 dose TOP ONETIME ONE Stop: 12/07/18 13:41 Last Admin: 12/07/18 13:51 Dose: 1 dose Sodium Chloride (Normal Saline) 1,000 mls @ 999 mls/hr IV STAT ONE Stop: 12/07/18 16:21 Last Admin: 12/07/18 15:49 Dose: 999 mls/hr Ceftriaxone Sodium/Dextrose 1 (gm/ Premix) 50 mls @ 100 mls/hr IV ONETIME ONE Stop: 12/07/18 16:11 Last Admin: 12/07/18 15:53 Dose: 100 mls/hr - Exam General: Alert, Oriented HEENT: Pupils Equal, Pupils Reactive, EOMI, Mucous Membr. Moist/[place] Neck: Supple Lungs: Clear to Auscultation, Normal Respiratory Effort Cardiovascular: Regular Rate, Regular Rhythm GI/Abdominal Exam: Normal Bowel Sounds, Soft, Non-Tender, No Organomegaly, No Distention, No Abnormal Bruit, No Mass, Pelvis Stable Extremities: Normal Inspection, Normal Range of Motion, Non-Tender, No Pedal Edema, Normal Capillary Refill Peripheral Pulses: 2+: Dorsalis Pedis (L), Dorsalis Pedis (R) Skin: Other (surrounding mild nail trauma to the L great toe, no induration or drainage) Psy/Mental Status: Alert, Normal Affect, Normal Mood - Problem List Review Problem List Initiated/Reviewed/Updated: Yes - My Orders Last 24 Hours: My Active Orders 12/08/18 08:45 cefTRIAXone [Rocephin in Dextrose,Iso-Osm 1 GM/50 ML] 1 gm Premix Bag 1 bag IV Q24H 12/09/18 05:11 BASIC METABOLIC PANEL,BMP [CHEM] AM CBC WITH AUTO DIFF [HEME] AM 12/10/18 05:11 BASIC METABOLIC PANEL,BMP [CHEM] AM CBC WITH AUTO DIFF [HEME] AM - Plan Plan:: The patient is a 78-year-old gentleman who has multiple chronic medical issues and his primary reason for Hospital admission is for dehydration. Patient has chronic kidney disease and he'll be gently fluid resuscitated. His I&O's will be monitored. It should be noted that the patient initially had been thought to have pneumonia however, radiographic evidence does not support this diagnosis. The patient is also currently chronically anticoagulated due to his atrial fibrillation as well as pacemaker placement. The patient's home Eliquis will be continued. A primary concern is the patient's frequent falls and he has been imaged without signs or symptoms of fracture. 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 He is on allopurinol and this will be continued. Patient does have leukocytosis which is thought to be secondary to dehydration. The patient will be kept on telemetry due to his heart disease. The patient will have repeat laboratory studies ordered for the morning. The patient also has marked elevation of his BUN/creatinine and creatinine although his creatinine of 3.6 mg/dL is likely at his baseline. The patient has been encouraged to ambulate as he can. The patient should be appropriate for discharge in 1-2 days. Assessment: #1. SAMEER #2. CKD #3. Leukocytosis #4. UTI #5. History of A. 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 Start Rocephin for UTI #2. Continue IV fluid resuscitation for dehydration #3. Repeat CBC, BMP tomorrow which is reassuring today #4. Anticipate discharge 1-2 days. Should have follow up set up with orthopedics for his shoulder and podiatry for his foot. <Kaleb Andrade - Last Filed: 12/08/18 16:58> - General Info Admission Dx/Problem (Free Text): I have seen and examined to patient independently of medical device assembler, Caesar Kyle MD. I have discussed the case for care of this patient with him. I have reviewed and approve of the plan of care as outlined by medical device assembler.. Please see orders. - Patient Data Vitals - Most Recent: Last Vital Signs Temp 36.8 C 12/08/18 16:00 Pulse 70 12/08/18 16:00 Resp 16 12/08/18 16:00 BP 107/57 L 12/08/18 16:00 Pulse Ox 96 12/08/18 16:00 I&O - Last 24 Hours: Intake & Output 12/08/18 12/08/18 12/08/18 06:59 14:59 22:59 Intake Total 450 2059 Output Total 900 Balance -450 2059 Lab Results Last 24 Hours: Laboratory Results - last 24 hr 12/08/18 12/08/18 Range/Units 05:50 05:50 WBC 17.40 H (4.0-11.0) K/uL RBC 4.99 (4.50-5.90) M/uL Hgb 12.9 L (13.0-17.0) g/dL Hct 38.2 (38.0-50.0) % MCV 76.6 L (80.0-98.0) fL MCH 25.9 L (27.0-32.0) pg MCHC 33.8 (31.0-37.0) g/dL RDW Std Deviation 40.2 (28.0-62.0) fl RDW Coeff of [place] 15 (11.0-15.0) % Plt Count 184 (150-400) K/uL MPV 10.70 (7.40-12.00) fL Add Manual Diff YES Neutrophils % (Manual) 84 H (48.0-80.0) % Band Neutrophils % 1 % Lymphocytes % (Manual) 9 L (16.0-40.0) % Monocytes % (Manual) 6 (0.0-15.0) % Nucleated RBC % 0.0 /100WBC Absolute Seg Neuts 14.6 H (1.4-5.7) Band Neutrophils # 0.2 Lymphocytes # (Manual) 1.6 (0.6-2.4) Monocytes # (Manual) 1.0 H (0.0-0.8) Nucleated RBCs # 0 K/uL Sodium 136 (136-148) mmol/L Potassium 4.4 (3.5-5.1) mmol/L Chloride 104 (98-107) mmol/L Carbon Dioxide 17.7 L (21.0-32.0) mmol/L BUN 128 H (7.0-18.0) mg/dL Creatinine 3.1 H (0.8-1.3) mg/dL Est Cr Clr Drug Dosing 16.32 mL/min Estimated GFR (MDRD) 19.7 ml/min Glucose 123 H (74-106) mg/dL Calcium 8.9 (8.5-10.1) mg/dL Total Bilirubin 0.8 (0.2-1.0) mg/dL AST 31 (15-37) IU/L ALT 28 (14-63) IU/L Alkaline Phosphatase 65 (46-116) U/L Total Protein 6.8 (6.4-8.2) g/dL Albumin 2.5 L (3.4-5.0) g/dL Globulin 4.3 H (2.6-4.0) g/dL Albumin/Globulin Ratio 0.6 L (0.9-1.6) Dhiraj Results Last 24 Hours: Microbiology 12/07/18 16:03 Aerobic Blood Culture - Preliminary Blood - Venous - Lab Draw NO GROWTH AFTER 1 DAY Anaerobic Blood Culture - Preliminary NO GROWTH AFTER 1 DAY 12/07/18 15:52 Aerobic Blood Culture - Preliminary Blood - Venous NO GROWTH AFTER 1 DAY Anaerobic Blood Culture - Preliminary NO GROWTH AFTER 1 DAY Med Orders - Current: Current Medications Acetaminophen (Tylenol) 650 mg PO Q4H PRN PRN Reason: Pain (Mild 1-3)/fever Allopurinol (Zyloprim) 100 mg PO DAILY [facility] Last Admin: 12/08/18 09:03 Dose: 100 mg Amiodarone HCl (Cordarone) 100 mg PO DAILY [facility] Last Admin: 12/08/18 09:02 Dose: 100 mg Apixaban (Eliquis) 5 mg PO DAILY [facility] Last Admin: 12/08/18 09:04 Dose: 5 mg Atorvastatin Calcium (Lipitor) 20 mg PO DAILY [facility] Last Admin: 12/08/18 09:02 Dose: 20 mg Calcitriol (Rocaltrol) 0.25 mcg PO DAILY [facility] Last Admin: 12/08/18 09:03 Dose: 0.25 mcg Carvedilol (Coreg) 12.5 mg PO BID [facility] Last Admin: 12/08/18 09:05 Dose: Not Given Diltiazem HCl (Cardizem Cd) 240 mg PO DAILY [facility] Last Admin: 12/08/18 09:05 Dose: Not Given Docusate Sodium (Colace) 100 mg PO BID PRN PRN Reason: Constipation Doxycycline Hyclate (Vibramycin) 100 mg PO DAILY [facility] Last Admin: 12/08/18 09:06 Dose: Not Given Hydralazine HCl (Apresoline) 25 mg PO BID [facility] Last Admin: 12/08/18 09:04 Dose: Not Given Sodium Chloride (Normal Saline) 1,000 mls @ 75 mls/hr IV ASDIRECTED [facility] Last Admin: 12/08/18 12:57 Dose: 75 mls/hr Sodium Chloride (Normal Saline) 500 mls @ 999 mls/hr IV .BOLUS [facility] Last Admin: 12/08/18 05:07 Dose: 999 mls/hr Ceftriaxone Sodium/Dextrose 1 (gm/ Premix) 50 mls @ 100 mls/hr IV Q24H [facility] Last Admin: 12/08/18 09:02 Dose: 100 mls/hr Isosorbide Mononitrate (Imdur) 30 mg PO DAILY [facility] Last Admin: 12/08/18 09:05 Dose: Not Given Levothyroxine Sodium (Levothyroxine) 75 mcg PO ACBREAKFAST [facility] Last Admin: 12/08/18 06:35 Dose: 75 mcg Omeprazole (Omeprazole) 40 mg PO ACBREAKFAST [facility] Last Admin: 12/08/18 06:35 Dose: 40 mg Oxycodone HCl (Oxycodone) 5 mg PO Q4H PRN PRN Reason: Pain (moderate 4-6) Last Admin: 12/08/18 16:13 Dose: 5 mg Spironolactone (Aldactone) 25 mg PO DAILY [facility] Last Admin: 12/08/18 09:02 Dose: 25 mg Tamsulosin HCl (Flomax) 0.4 mg PO DAILY [facility] Last Admin: 12/08/18 09:03 Dose: 0.4 mg Temazepam (Restoril) 15 mg PO BEDTIME PRN PRN Reason: Sleep Torsemide (Demadex) 20 mg PO DAILY [facility] Last Admin: 12/08/18 09:03 Dose: 20 mg Discontinued Medications Bacitracin (Bacitracin Oint 1 Gm) 1 dose TOP ONETIME ONE Stop: 12/07/18 13:41 Last Admin: 12/07/18 13:51 Dose: 1 dose Sodium Chloride (Normal Saline) 1,000 mls @ 999 mls/hr IV STAT ONE Stop: 12/07/18 16:21 Last Admin: 12/07/18 15:49 Dose: 999 mls/hr Ceftriaxone Sodium/Dextrose 1 (gm/ Premix) 50 mls @ 100 mls/hr IV ONETIME ONE Stop: 12/07/18 16:11 Last Admin: 12/07/18 15:53 Dose: 100 mls/hr - Problem List & Annotations (1) Dehydration SNOMED Code(s): 01248665 Code(s): E86.0 - DEHYDRATION Status: Acute Current Visit: Yes (2) Anticoagulant long-term use SNOMED Code(s): 907638629 Code(s): Z79.01 - GREENS KEEPER (CURRENT) USE OF ANTICOAGULANTS Status: Acute Current Visit: Yes (3) Cardiomegaly SNOMED Code(s): 0750450 Code(s): I51.7 - CARDIOMEGALY Status: Acute Current Visit: Yes (4) Congestive heart failure (CHF) SNOMED Code(s): 32628536 Code(s): I50.9 - HEART FAILURE, UNSPECIFIED Status: Acute Current Visit: Yes (5) Osteoarthritis involving multiple joints on both sides of body SNOMED Code(s): 154557686 Code(s): M15.9 - POLYOSTEOARTHRITIS, UNSPECIFIED Status: Acute Current Visit: Yes (6) Pacemaker SNOMED Code(s): 381315337 Code(s): Z95.0 - PRESENCE OF CARDIAC PACEMAKER Status: Acute Current Visit: Yes (7) Renal insufficiency SNOMED Code(s): 322846086, 534521466 Code(s): N28.9 - DISORDER OF KIDNEY AND URETER, UNSPECIFIED Status: Acute Current Visit: Yes (8) Fall SNOMED Code(s): 8920973, 504848917 Code(s): W19.XXXA - UNSPECIFIED FALL, INITIAL ENCOUNTER Status: Acute Current Visit: Yes Qualifiers: Encounter type: initial encounter Qualified Code(s): W19.XXXA - Unspecified fall, initial encounter - My Orders Last 24 Hours: My Active Orders 12/07/18 17:10 Telemetry Monitoring [Cardiac Monitoring] [RC] Q8H 12/07/18 18:01 Oxygen Therapy [RC] PRN Up With Assistance [RC] ASDIRECTED VTE/DVT Education [RC] PER UNIT ROUTINE Vital Signs [RC] Q4H OT Evaluation and Treatment [CONS] Routine PT Evaluation and Treatment [CONS] Routine Acetaminophen [Tylenol] 650 mg PO Q4H PRN Docusate Sodium [Colace] 100 mg PO BID PRN Temazepam [Restoril] 15 mg PO BEDTIME PRN oxyCODONE 5 mg PO Q4H PRN VTE Mechanical Contraindications [AST] Per Unit Routine VTE Pharmacological Contraindications [AST] Per Unit Routine Resuscitation Status Routine 12/07/18 18:15 Sodium Chloride 0.9% [Normal Saline] 1,000 ml IV ASDIRECTED 12/07/18 21:00 Carvedilol [Coreg] 12.5 mg PO BID hydrALAZINE [Apresoline] 25 mg PO BID 12/07/18 Dinner Heart Healthy Diet [DIET] 12/08/18 05:00 Sodium Chloride 0.9% [Normal Saline] 500 ml IV .BOLUS 12/08/18 07:30 Levothyroxine 75 mcg PO ACBREAKFAST Omeprazole 40 mg PO ACBREAKFAST 12/08/18 07:41 Consult to Wound Care Services [CONS] Routine 12/08/18 09:00 Allopurinol [Zyloprim] 100 mg PO DAILY Amiodarone [Cordarone] 100 mg PO DAILY Apixaban [Eliquis] 5 mg PO DAILY Calcitriol [Rocaltrol] 0.25 mcg PO DAILY Diltiazem [Cardizem CD] 240 mg PO DAILY Doxycycline [Vibramycin] 100 mg PO DAILY Isosorbide Mononitrate [Imdur] 30 mg PO DAILY Spironolactone [Aldactone] 25 mg PO DAILY Tamsulosin [Flomax] 0.4 mg PO DAILY Torsemide [Demadex] 20 mg PO DAILY atorvaSTATin [Lipitor] 20 mg PO DAILY 12/08/18 13:10 Dressing Change [Wound Care] [RC] DAILY
[2018-12-09] MEDS: Omeprazole 20 MG Cap.CR PO SCH (06:41)
[2018-12-09] MEDS: Levothyroxine 75 MCG Tab PO SCH (06:41)
[2018-12-09] MEDS: hydrALAZINE 25 MG Tab PO SCH ×2 (08:42→20:35)
[2018-12-09] MEDS: Isosorbide Mononitrate 30 MG Tab.ER PO SCH (08:42)
[2018-12-09] MEDS: Amiodarone 200 MG Tab PO SCH (08:43)
[2018-12-09] MEDS: Spironolactone 25 MG Tab PO SCH (08:43)
[2018-12-09] MEDS: Doxycycline 100 MG Cap PO SCH (08:43)
[2018-12-09] MEDS: Carvedilol 12.5 MG Tab PO SCH ×2 (08:43→20:34)
[2018-12-09] MEDS: Apixaban 5 MG Tab PO SCH (08:44)
[2018-12-09] MEDS: Allopurinol 100 MG Tab PO SCH (08:44)
[2018-12-09] MEDS: Tamsulosin 0.4 MG Cap.ER PO SCH (08:44)
[2018-12-09] MEDS: Torsemide 20 MG Tab PO SCH (08:44)
[2018-12-09] MEDS: Diltiazem 120 MG Cap.CD PO SCH (08:44)
[2018-12-09] MEDS: Calcitriol 0.25 MCG Cap PO SCH (08:44)
[2018-12-09] MEDS: atorvaSTATin 20 MG Tab PO SCH (08:44)
[2018-12-09] MEDS: cefTRIAXone 1 GM in Premix Bag 1 BAG IV SCH (08:45)
--- NOTE | 2018-12-09 10:03 | PCM.PN ---
- General Info Date of Service: 12/09/18 Subjective Update: Pain much better today. Seen having breakfast. No issues with breathing, dysuria. - Review of Systems General: Reports: Other (see hpi) - Patient Data Vitals - Most Recent: Last Vital Signs Temp 36.8 C 12/09/18 07:48 Pulse 72 12/09/18 08:44 Resp 16 12/09/18 07:48 BP 126/65 12/09/18 08:44 Pulse Ox 95 12/09/18 07:48 Weight - Most Recent: 68.039 kg I&O - Last 24 Hours: Intake & Output 12/08/18 12/09/18 12/09/18 22:59 06:59 14:59 Intake Total 2058 1276 360 Output Total 1200 Balance 2058 76 360 Lab Results Last 24 Hours: Laboratory Results - last 24 hr 12/09/18 12/09/18 Range/Units 06:11 06:11 WBC 16.72 H (4.0-11.0) K/uL RBC 5.09 (4.50-5.90) M/uL Hgb 13.1 (13.0-17.0) g/dL Hct 39.0 (38.0-50.0) % MCV 76.6 L (80.0-98.0) fL MCH 25.7 L (27.0-32.0) pg MCHC 33.6 (31.0-37.0) g/dL RDW Std Deviation 40.6 (28.0-62.0) fl RDW Coeff of [place] 15 (11.0-15.0) % Plt Count 179 (150-400) K/uL MPV 10.40 (7.40-12.00) fL Neut % (Auto) 73.0 (48.0-80.0) % Lymph % (Auto) 16.3 (16.0-40.0) % [place] % (Auto) 9.8 (0.0-15.0) % Eos % (Auto) 0.7 (0.0-7.0) % Baso % (Auto) 0.2 (0.0-1.5) % Neut # (Auto) 12.2 H (1.4-5.7) K/uL Lymph # (Auto) 2.7 H (0.6-2.4) K/uL [place] # (Auto) 1.6 H (0.0-0.8) K/uL Eos # (Auto) 0.1 (0.0-0.7) K/uL Baso # (Auto) 0.0 (0.0-0.1) K/uL Nucleated RBC % 0.0 /100WBC Nucleated RBCs # 0 K/uL Sodium 134 L (136-148) mmol/L Potassium 4.9 (3.5-5.1) mmol/L Chloride 101 (98-107) mmol/L Carbon Dioxide 18.7 L (21.0-32.0) mmol/L BUN 117 H (7.0-18.0) mg/dL Creatinine 2.9 H (0.8-1.3) mg/dL Est Cr Clr Drug Dosing 17.44 mL/min Estimated GFR (MDRD) 21.3 ml/min Glucose 121 H (74-106) mg/dL Calcium 9.1 (8.5-10.1) mg/dL Dhiraj Results Last 24 Hours: Microbiology 12/07/18 16:03 Aerobic Blood Culture - Preliminary Blood - Venous - Lab Draw NO GROWTH AFTER 1 DAY Anaerobic Blood Culture - Preliminary NO GROWTH AFTER 1 DAY 12/07/18 15:52 Aerobic Blood Culture - Preliminary Blood - Venous NO GROWTH AFTER 1 DAY Anaerobic Blood Culture - Preliminary NO GROWTH AFTER 1 DAY Med Orders - Current: Current Medications Acetaminophen (Tylenol) 650 mg PO Q4H PRN PRN Reason: Pain (Mild 1-3)/fever Allopurinol (Zyloprim) 100 mg PO DAILY [facility] Last Admin: 12/09/18 08:44 Dose: 100 mg Amiodarone HCl (Cordarone) 100 mg PO DAILY [facility] Last Admin: 12/09/18 08:43 Dose: 100 mg Apixaban (Eliquis) 5 mg PO DAILY [facility] Last Admin: 12/09/18 08:44 Dose: 5 mg Atorvastatin Calcium (Lipitor) 20 mg PO DAILY [facility] Last Admin: 12/09/18 08:44 Dose: 20 mg Calcitriol (Rocaltrol) 0.25 mcg PO DAILY [facility] Last Admin: 12/09/18 08:44 Dose: 0.25 mcg Carvedilol (Coreg) 12.5 mg PO BID [facility] Last Admin: 12/09/18 08:43 Dose: 12.5 mg Diltiazem HCl (Cardizem Cd) 240 mg PO DAILY [facility] Last Admin: 12/09/18 08:44 Dose: 240 mg Docusate Sodium (Colace) 100 mg PO BID PRN PRN Reason: Constipation Doxycycline Hyclate (Vibramycin) 100 mg PO DAILY [facility] Last Admin: 12/09/18 08:43 Dose: 100 mg Hydralazine HCl (Apresoline) 25 mg PO BID [facility] Last Admin: 12/09/18 08:42 Dose: 25 mg Sodium Chloride (Normal Saline) 1,000 mls @ 75 mls/hr IV ASDIRECTED [facility] Last Admin: 12/08/18 12:57 Dose: 75 mls/hr Sodium Chloride (Normal Saline) 500 mls @ 999 mls/hr IV .BOLUS [facility] Last Admin: 12/08/18 05:07 Dose: 999 mls/hr Ceftriaxone Sodium/Dextrose 1 (gm/ Premix) 50 mls @ 100 mls/hr IV Q24H [facility] Last Admin: 12/09/18 08:45 Dose: 100 mls/hr Isosorbide Mononitrate (Imdur) 30 mg PO DAILY [facility] Last Admin: 12/09/18 08:42 Dose: 30 mg Levothyroxine Sodium (Levothyroxine) 75 mcg PO ACBREAKFAST [facility] Last Admin: 12/09/18 06:41 Dose: 75 mcg Omeprazole (Omeprazole) 40 mg PO ACBREAKFAST [facility] Last Admin: 12/09/18 06:41 Dose: 40 mg Oxycodone HCl (Oxycodone) 5 mg PO Q4H PRN PRN Reason: Pain (moderate 4-6) Last Admin: 12/08/18 16:13 Dose: 5 mg Spironolactone (Aldactone) 25 mg PO DAILY [facility] Last Admin: 12/09/18 08:43 Dose: 25 mg Tamsulosin HCl (Flomax) 0.4 mg PO DAILY [facility] Last Admin: 12/09/18 08:44 Dose: 0.4 mg Temazepam (Restoril) 15 mg PO BEDTIME PRN PRN Reason: Sleep Torsemide (Demadex) 20 mg PO DAILY [facility] Last Admin: 12/09/18 08:44 Dose: 20 mg Discontinued Medications Bacitracin (Bacitracin Oint 1 Gm) 1 dose TOP ONETIME ONE Stop: 12/07/18 13:41 Last Admin: 12/07/18 13:51 Dose: 1 dose Sodium Chloride (Normal Saline) 1,000 mls @ 999 mls/hr IV STAT ONE Stop: 12/07/18 16:21 Last Admin: 12/07/18 15:49 Dose: 999 mls/hr Ceftriaxone Sodium/Dextrose 1 (gm/ Premix) 50 mls @ 100 mls/hr IV ONETIME ONE Stop: 12/07/18 16:11 Last Admin: 12/07/18 15:53 Dose: 100 mls/hr - Exam General: Alert, Oriented HEENT: Pupils Equal, Pupils Reactive, EOMI, Mucous Membr. Moist/[place] Lungs: Clear to Auscultation, Normal Respiratory Effort Cardiovascular: Regular Rate, Regular Rhythm Extremities: Normal Inspection, Normal Range of Motion, Non-Tender, No Pedal Edema, Normal Capillary Refill Peripheral Pulses: 1+: Dorsalis Pedis (L), Dorsalis Pedis (R) Skin: Warm, Dry, Intact - Problem List Review Problem List Initiated/Reviewed/Updated: Yes - My Orders Last 24 Hours: My Active Orders 12/09/18 07:55 CREATININE,URINE RAND [URCHEM] Routine SODIUM,URINE RANDOM [URCHEM] Routine 12/10/18 05:11 BASIC METABOLIC PANEL,BMP [CHEM] AM CBC WITH AUTO DIFF [HEME] AM - Plan Plan:: Assessment: #1. SAMEER #2. CKD #3. Leukocytosis #4. UTI #5. History of A. 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 Continue current management #2. Calculate FeNa #3. Repeat cbc/bmp tomorrow AM #4. F/u on urine culture #5. Anticipate dc 1-2 days
[2018-12-09] MEDS: Ciprofloxacin in D5W 400 MG in Premix Bag 1 BAG IV SCH ×4 (11:11→23:00)
[2018-12-09] MEDS: oxyCODONE 5 MG Tab PO PRN ×2 (13:52→19:42)
[2018-12-09] MEDS: Sodium Chloride 0.9% 1,000 ML IV SCH (16:22)
[2018-12-10] MEDS: Sodium Chloride 0.9% 1,000 ML IV SCH (04:27)
[2018-12-10] MEDS: Omeprazole 20 MG Cap.CR PO SCH (06:34)
[2018-12-10] MEDS: Levothyroxine 75 MCG Tab PO SCH (06:34)
[2018-12-10] MEDS: hydrALAZINE 25 MG Tab PO SCH (08:12)
[2018-12-10] MEDS: Spironolactone 25 MG Tab PO SCH (08:52)
[2018-12-10] MEDS: Diltiazem 120 MG Cap.CD PO SCH (08:52)
[2018-12-10] MEDS: Isosorbide Mononitrate 30 MG Tab.ER PO SCH (08:52)
[2018-12-10] MEDS: Carvedilol 12.5 MG Tab PO SCH (08:52)
[2018-12-10] MEDS: Torsemide 20 MG Tab PO SCH (08:53)
[2018-12-10] MEDS: Allopurinol 100 MG Tab PO SCH (08:53)
[2018-12-10] MEDS: Doxycycline 100 MG Cap PO SCH (08:53)
[2018-12-10] MEDS: Tamsulosin 0.4 MG Cap.ER PO SCH (08:53)
[2018-12-10] MEDS: Apixaban 5 MG Tab PO SCH (08:53)
[2018-12-10] MEDS: Amiodarone 200 MG Tab PO SCH (08:53)
[2018-12-10] MEDS: atorvaSTATin 20 MG Tab PO SCH (08:53)
[2018-12-10] MEDS: oxyCODONE 5 MG Tab PO PRN ×2 (08:53→12:19)
[2018-12-10] MEDS: Calcitriol 0.25 MCG Cap PO SCH (08:53)
--- NOTE | 2018-12-10 09:31 | PCM.DCSUM1 ---
Discharge Summary - Hospital Course HPI Initial Comments: The patient has multiple medical problems and he was admitted after a fall. The patient has gouty arthritis, hypertension, heart disease, congestive heart failure with unspecified ejection fraction and mobility issues. 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 Status: Chronic Current Visit: Yes (3) Cardiomegaly SNOMED Code(s): 1310974 ICD Code: I51.7 - CARDIOMEGALY Status: Chronic Priority: High Current Visit: Yes (4) Congestive heart failure (CHF) SNOMED Code(s): 46942446 ICD Code: I50.9 - HEART FAILURE, UNSPECIFIED Status: Chronic Priority: High Current Visit: Yes Qualifiers: Heart failure type: unspecified Heart failure chronicity: acute on chronic Qualified Code(s): I50.9 - Heart failure, unspecified (5) Osteoarthritis involving multiple joints on both sides of body SNOMED Code(s): 407841838 ICD Code: M15.9 - POLYOSTEOARTHRITIS, UNSPECIFIED Status: Chronic Priority: High Current Visit: Yes (6) Pacemaker SNOMED Code(s): 473534134 ICD Code: Z95.0 - PRESENCE OF CARDIAC PACEMAKER Status: Chronic Priority : High Current Visit: Yes (7) Renal insufficiency SNOMED Code(s): 131595556, 763119133 ICD Code: N28.9 - DISORDER OF KIDNEY AND URETER, UNSPECIFIED Status: Chronic Priority: Medium Current Visit: Yes (8) Fall SNOMED Code(s): 4875842, 604769953 ICD Code: W19.XXXA - UNSPECIFIED FALL, INITIAL ENCOUNTER Status: Acute Priority: High Current Visit: Yes Qualifiers: Encounter type: subsequent encounter Qualified Code(s): W19.XXXD - Unspecified fall, subsequent encounter - Patient Summary/Data Consults: Consultations 12/07/18 18:01 OT Evaluation and Treatment [CONS] Routine PT Evaluation and Treatment [CONS] Routine 12/08/18 07:41 Consult to Wound Care Services [CONS] Routine Hospital Course: The patient is a 78-year-old gentleman who is brought by his family from [place] and had presented to the emergency department with a complaint of falling off the bed. The patient has been in the area for approximately 1 month. He is Tu[place]uan-speaking only. The patient reported that he had a fall approximately one week ago. Palate had been trying to get up and landed on his left side on the carpeted floor. The patient had been cared for family members while in [place] and his family locally have decided to give the other family members a temporary respite. The patient was also admitted secondary to severe dehydration. The patient was gently fluid resuscitated. He had been tolerating his diet. The patient's primary concern had been pain associated in his great toe from an abrasion from when he had fallen. The patient also have a urinary culture completed which showed Escherichia coli sensitive to ciprofloxacin. The patient was discharged with ciprofloxacin 500 mg by mouth twice a day. The patient's family was advised and he had been recommended to return to [place] for possible longterm facility care. The patient also had been recommended continue with a heart healthy diet as tolerated. He is to have activity as tolerated. The patient had been afforded physical therapy evaluation and he had refused to participate secondary to his pain. The patient has been hemodynamically stable and he is discharged from acute hospitalization with recommendations listed above. - Patient Instructions Diet: Heart Healthy Diet Activity: As Tolerated - Discharge Plan *PRESCRIPTION DRUG MONITORING PROGRAM REVIEWED*: No *COPY OF PRESCRIPTION DRUG MONITORING REPORT IN PATIENT JAKE: No Prescriptions/Med Rec: Ciprofloxacin [Ciprofloxacin HCl] 500 mg PO BID #10 tab oxyCODONE 5 mg PO Q4H PRN #20 tablet PRN Reason: Pain (Moderate 4-6) Home Medications: Home Meds Allopurinol [Zyloprim] 100 mg PO DAILY 12/07/18 [History] Amiodarone HCl 100 mg PO DAILY 12/07/18 [History] Apixaban [Eliquis] 5 mg PO DAILY 12/07/18 [History] Calcitriol 0.25 mcg PO DAILY 12/07/18 [History] Calcium Carbonate/Vitamin D3 [Calcium 1,000 + D3 Caplet] 1 tab PO BID 12/07/18 [ History] Carvedilol 12.5 mg PO BID 12/07/18 [History] Diltiazem HCl [Diltiazem 24Hr ER] 240 mg PO DAILY 12/07/18 [History] Isosorbide Mononitrate [Isosorbide Mononitrate ER] 30 mg PO DAILY 12/07/18 [ History] Levothyroxine 75 mcg PO DAILY 12/07/18 [History] Omeprazole 40 mg PO DAILY 12/07/18 [History] Spironolactone [Aldactone] 25 mg PO DAILY 12/07/18 [History] Tamsulosin HCl 0.4 mg PO DAILY 12/07/18 [History] Torsemide 20 mg PO DAILY 12/07/18 [History] atorvaSTATin [Lipitor] 20 mg PO DAILY 12/07/18 [History] hydrALAZINE [Apresoline] 25 mg PO BID 12/07/18 [History] Ciprofloxacin [Ciprofloxacin HCl] 500 mg PO BID #10 tab 12/10/18 [Rx] oxyCODONE 5 mg PO Q4H PRN #20 tablet 12/10/18 [Rx] Oxygen Therapy Mode: Room Air Patient Handouts: Oxycodone tablets or capsules, Dehydration, Adult, Easy-to- Read, Heart Failure, [id number], Ciprofloxacin tablets - Discharge Summary/Plan Comment DC Time >30 min.: Yes - General Info Date of Service: 12/10/18 Admission Dx/Problem (Free Text: Admitted after a fall. Patient is here from [place]. Subjective Update: The patient feels much better today. The family thinks that the patient can go home today and they are considering taking the patient back to [place] with his primary care physician. Functional Status: Reports: Pain Controlled - Review of Systems General: Reports: No Symptoms HEENT: Reports: No Symptoms Pulmonary: Reports: No Symptoms Cardiovascular: Reports: No Symptoms Gastrointestinal: Reports: No Symptoms Genitourinary: Reports: No Symptoms Musculoskeletal: Reports: No Symptoms Skin: Reports: No Symptoms Neurological: Reports: No Symptoms Psychiatric: Reports: No Symptoms - Patient Data Vitals - Most Recent: Last Vital Signs Temp 36.8 C 12/10/18 08:00 Pulse 66 12/10/18 08:52 Resp 16 12/10/18 08:00 BP 116/67 12/10/18 08:52 Pulse Ox 97 12/10/18 08:00 Weight - Most Recent: 68.039 kg I&O - Last 24 hours: Intake & Output 12/09/18 12/10/18 12/10/18 22:59 06:59 14:59 Intake Total 1749 2585 Output Total 2374 1720 Balance 249 865 Lab Results - Last 24 hrs: Laboratory Results - last 24 hr 12/09/18 12/10/18 12/10/18 Range/Units 15:35 05:45 05:45 WBC 15.58 H (4.0-11.0) K/uL RBC 4.84 (4.50-5.90) M/uL Hgb 12.5 L (13.0-17.0) g/dL Hct 37.1 L (38.0-50.0) % MCV 76.7 L (80.0-98.0) fL MCH 25.8 L (27.0-32.0) pg MCHC 33.7 (31.0-37.0) g/dL RDW Std Deviation 40.7 (28.0-62.0) fl RDW Coeff of [place] 15 (11.0-15.0) % Plt Count 190 (150-400) K/uL MPV 10.10 (7.40-12.00) fL Add Manual Diff YES Neutrophils % (Manual) 80 (48.0-80.0) % Band Neutrophils % 3 % Lymphocytes % (Manual) 13 L (16.0-40.0) % Monocytes % (Manual) 2 (0.0-15.0) % Eosinophils % (Manual) 1 (0.0-7.0) % Basophils % (Manual) 1 (0.0-1.5) % Nucleated RBC % 0.0 /100WBC Absolute Seg Neuts 12.5 H (1.4-5.7) Band Neutrophils # 0.5 Lymphocytes # (Manual) 2.0 (0.6-2.4) Monocytes # (Manual) 0.3 (0.0-0.8) Eosinophils # (Manual) 0.2 (0.0-0.7) Basophils # (Manual) 0.2 H (0.0-0.1) Nucleated RBCs # 0 K/uL Sodium 130 L (136-148) mmol/L Potassium 5.4 H (3.5-5.1) mmol/L Chloride 98 (98-107) mmol/L Carbon Dioxide 18.4 L (21.0-32.0) mmol/L BUN 117 H (7.0-18.0) mg/dL Creatinine 2.9 H (0.8-1.3) mg/dL Est Cr Clr Drug Dosing 17.44 mL/min Estimated GFR (MDRD) 21.3 ml/min Glucose 122 H (74-106) mg/dL Calcium 9.3 (8.5-10.1) mg/dL Ur Random Creatinine 18.1 mg/dL Ur Random Sodium 97.0 (40.0-220.0) mmol/L RUSS Results - Last 24 hrs: Microbiology 12/07/18 16:03 Aerobic Blood Culture - Preliminary Blood - Venous - Lab Draw NO GROWTH AFTER 2 DAYS Anaerobic Blood Culture - Preliminary NO GROWTH AFTER 2 DAYS 12/07/18 15:52 Aerobic Blood Culture - Preliminary Blood - Venous NO GROWTH AFTER 2 DAYS Anaerobic Blood Culture - Preliminary NO GROWTH AFTER 2 DAYS 12/07/18 14:27 Urine Culture - Final Urine, Clean Catch Enterococcus Faecalis Med Orders - Current: Current Medications Acetaminophen (Tylenol) 650 mg PO Q4H PRN PRN Reason: Pain (Mild 1-3)/fever Allopurinol (Zyloprim) 100 mg PO DAILY [facility] Last Admin: 12/10/18 08:53 Dose: 100 mg Amiodarone HCl (Cordarone) 100 mg PO DAILY [facility] Last Admin: 12/10/18 08:53 Dose: 100 mg Apixaban (Eliquis) 5 mg PO DAILY [facility] Last Admin: 12/10/18 08:53 Dose: 5 mg Atorvastatin Calcium (Lipitor) 20 mg PO DAILY [facility] Last Admin: 12/10/18 08:53 Dose: 20 mg Calcitriol (Rocaltrol) 0.25 mcg PO DAILY [facility] Last Admin: 12/10/18 08:53 Dose: 0.25 mcg Carvedilol (Coreg) 12.5 mg PO BID [facility] Last Admin: 12/10/18 08:52 Dose: 12.5 mg Diltiazem HCl (Cardizem Cd) 240 mg PO DAILY [facility] Last Admin: 12/10/18 08:52 Dose: 240 mg Docusate Sodium (Colace) 100 mg PO BID PRN PRN Reason: Constipation Doxycycline Hyclate (Vibramycin) 100 mg PO DAILY [facility] Last Admin: 12/10/18 08:53 Dose: 100 mg Hydralazine HCl (Apresoline) 25 mg PO BID [facility] Last Admin: 12/10/18 08:12 Dose: Not Given Sodium Chloride (Normal Saline) 1,000 mls @ 75 mls/hr IV ASDIRECTED [facility] Last Admin: 12/10/18 04:27 Dose: 75 mls/hr Sodium Chloride (Normal Saline) 500 mls @ 999 mls/hr IV .BOLUS [facility] Last Admin: 12/08/18 05:07 Dose: 999 mls/hr Ciprofloxacin/Dextrose 400 mg/ (Premix) 200 mls @ 200 mls/hr IV Q12H [facility] Last Admin: 12/09/18 23:00 Dose: 200 mls/hr Isosorbide Mononitrate (Imdur) 30 mg PO DAILY [facility] Last Admin: 12/10/18 08:52 Dose: 30 mg Levothyroxine Sodium (Levothyroxine) 75 mcg PO ACBREAKFAST [facility] Last Admin: 12/10/18 06:34 Dose: 75 mcg Omeprazole (Omeprazole) 40 mg PO ACBREAKFAST [facility] Last Admin: 12/10/18 06:34 Dose: 40 mg Oxycodone HCl (Oxycodone) 5 mg PO Q4H PRN PRN Reason: Pain (moderate 4-6) Last Admin: 12/10/18 08:53 Dose: 5 mg Spironolactone (Aldactone) 25 mg PO DAILY [facility] Last Admin: 12/10/18 08:52 Dose: 25 mg Tamsulosin HCl (Flomax) 0.4 mg PO DAILY [facility] Last Admin: 12/10/18 08:53 Dose: 0.4 mg Temazepam (Restoril) 15 mg PO BEDTIME PRN PRN Reason: Sleep Torsemide (Demadex) 20 mg PO DAILY [facility] Last Admin: 12/10/18 08:53 Dose: 20 mg Discontinued Medications Bacitracin (Bacitracin Oint 1 Gm) 1 dose TOP ONETIME ONE Stop: 12/07/18 13:41 Last Admin: 12/07/18 13:51 Dose: 1 dose Sodium Chloride (Normal Saline) 1,000 mls @ 999 mls/hr IV STAT ONE Stop: 12/07/18 16:21 Last Admin: 12/07/18 15:49 Dose: 999 mls/hr Ceftriaxone Sodium/Dextrose 1 (gm/ Premix) 50 mls @ 100 mls/hr IV ONETIME ONE Stop: 12/07/18 16:11 Last Admin: 12/07/18 15:53 Dose: 100 mls/hr Ceftriaxone Sodium/Dextrose 1 (gm/ Premix) 50 mls @ 100 mls/hr IV Q24H [facility] Last Admin: 12/09/18 08:45 Dose: 100 mls/hr - Exam Quality Assessment: Denies: Supplemental Oxygen General: Reports: Alert, Oriented, Cooperative, No Acute Distress HEENT: Reports: Pupils Equal, Pupils Reactive, EOMI Neck: Reports: Supple, Trachea Midline Lungs: Reports: Clear to Auscultation, Normal Respiratory Effort Cardiovascular: Reports: Regular Rate, Regular Rhythm GI/Abdominal Exam: Normal Bowel Sounds, Soft, No Distention Back Exam: Reports: Normal Inspection, Full Range of Motion Extremities: No: Normal Inspection (Severe polyarthritis of major joints and minor joints) Skin: Reports: Warm, Dry, Intact Neurological: Reports: No New Focal Deficit Psy/Mental Status: Reports: Alert, Normal Affect, Normal Mood *Q Meaningful Use (DIS) - VTE *Q VTE Mechanical Contraindications *Q: At Risk for Falls VTE Pharmacological Contraindications *Q: Risk of Bleeding
[2018-12-10] MEDS: Ciprofloxacin in D5W 400 MG in Premix Bag 1 BAG IV SCH ×2 (11:35)
== END 2018-12-10 13:25 | disposition home or self-care (01) ==
LOC: MW.ED 13:16 → MW.MS 16:27
PROVIDERS: ADMIT Internal Medicine; ATTEND Internal Medicine
DX: E86.0 Dehydration (principal); S90.412A Abrasion, left great toe, initial encounter; N17.9 Acute kidney failure, unspecified; I13.0 Hypertensive heart and chronic kidney disease with heart failure and stage 1 through stage 4 chronic kidney disease, or unspecified chronic kidney disease; I50.9 Heart failure, unspecified; N18.9 Chronic kidney disease, unspecified; I25.2 Old myocardial infarction; I48.91 Unspecified atrial fibrillation; N39.0 Urinary tract infection, site not specified; B96.20 Unspecified Escherichia coli [E. coli] as the cause of diseases classified elsewhere; R29.6 Repeated falls; W18.30XA Fall on same level, unspecified, initial encounter; Z95.0 Presence of cardiac pacemaker; Z79.01 Long term (current) use of anticoagulants; Z79.899 Other long term (current) drug therapy
CPT/HCPCS: 36415; 70450; 71045; 72125; 73030; 73502; 73562; 73620; 80048; 80053; 81001; 82570; 83605; 84300; 85025; 85610; 87040; 87086; 87088; 87186; 93005; 96361; 96365; 96366; 96375; 96376; 97110; 97161; 97530; 99285; A4217; A9270; G0378; J0696; J0744; J7040